=== PATIENT | female | born 1970 | race Two or more races ===

== ENCOUNTER → 2025-03-20 | Outpatient (CLI) | payer MEDICAID, SELFPAY ==
--- NOTE | 2025-03-20 14:30 | XR_ITS ---
Examination: Screening digital mammography, bilateral Computer aided detection 3-D breast Tomosynthesis, bilateral Date and time of exam: March 20, 2025 1415 hours Compared to mammograms dating to May 02, 2011 Indication: Screening Technique: Nonmagnified MLO, CC views of the breasts to been obtained, reconstructed from 3-D Tomosynthesis images. R2 computer aided detection program utilized for evaluation of suspicious masses and/or abnormal calcifications. 3-D Tomosynthesis images obtained. Findings: Scattered areas of fibroglandular density. Benign calcifications. No interval suspicious masses Impression: BI-RADS category II: Benign Findings. Recommend 1 year follow-up mammogram.
== END | disposition home or self-care (01) ==
LOC: CDIM 14:06
PROVIDERS: Referring Provider Registered Nurse Community Health; Visit Provider Registered Nurse Community Health
DX: Z12.31 Encounter for screening mammogram for malignant neoplasm of breast (principal); R92.323 Mammographic fibroglandular density, bilateral breasts; R92.1 Mammographic calcification found on diagnostic imaging of breast
CPT/HCPCS: 77063; 77067

== ENCOUNTER → 2025-04-05 | Outpatient (CLI) | payer MEDICAID, SELFPAY ==
--- NOTE | 2025-04-05 09:30 | XR_ITS ---
Examination: Pelvic ultrasound, transabdominal, complete Technique: Transabdominal ultrasound of the pelvis performed using grayscale imaging Date and time of exam: April 05, 2025 0931 hours INDICATIONS: Left pelvic pain beginning several months ago FINDINGS: Uterus 5.0 cm no uterine mass Ovaries obscured by bowel gas IMPRESSION: Limited study No uterine mass or intrauterine gestation
== END | disposition home or self-care (01) ==
LOC: CDIM 09:05
PROVIDERS: PCP Registered Nurse Community Health; Referring Provider Registered Nurse Community Health; Visit Provider Registered Nurse Community Health
DX: R10.2 Pelvic and perineal pain (principal)
CPT/HCPCS: 76856

== ENCOUNTER 2025-09-07 11:00 | Day surgery (SDC) | payer MEDICAID, SELFPAY ==
[2025-09-05 10:08] VITALS: BMI 39.8
[2025-09-05 12:17] LABS: Basophils # (Auto) 0.1 Thou/mm3 (0.0-0.2); Basophils % (Auto) 1 % (0-2.5); Eosinophils # (Auto) 0.2 Thou/mm3 (0.0-0.5); Eosinophils % (Auto) 3 % (0-10); Hematocrit 39.7 % (36.0-46.0); Hemoglobin 13.2 g/dL (12.0-16.0); Immature Granulocytes Auto 0.03 Thou/mm3 (0.00-0.00); Lymphocytes # (Auto) 2.1 Thou/mm3 (1.0-4.8); Lymphocytes % (Auto) 31 % (10-50); Mean Corpuscular HGB Conc 33.2 g/dl (31.0-37.0); Mean Corpuscular Hemoglobin 31.1 pg (25.0-35.0); Mean Corpuscular Volume 93 fL (80-100); Monocytes # (Auto) 0.5 Thou/mm3 (0.0-0.8); Monocytes % (Auto) 8 % (0-12); Neutrophils # (Auto) 3.8 Thou/mm3 (1.8-7.7); Neutrophils % (Auto) 56 % (37-80); Nucleated Red Blood Cell # 0.00 Thou/mm3 (0.00-0.00); Nucleated Red Blood Cell % 0 /100 WBC (0); Platelet Count 252 Thou/mm3 (140-440); RDW Standard Deviation 43.5 fL (36.4-46.3); Red Blood Count 4.25 Miln/mm3 (4.00-5.20); White Blood Count 6.7 Thou/mm3 (3.6-11.0)
[2025-09-05 12:29] LABS: Anion Gap 7 (7-16); BUN/Creatinine Ratio 20 Ratio (12-20); Blood Urea Nitrogen 14 mg/dL (9-23); Calcium 9.7 mg/dL (8.3-10.6); Carbon Dioxide 30.9 mMol/L (20.0-31.0); Chloride 103 mMol/L (98-107); Creatinine (Component) 0.7 mg/dL (0.6-1.3); Estimated Creatinine Clearance 101.2 mL/min (>60); Glucose 105 mg/dL (74-106); Osmolality,Calculated 281 (275-295); Potassium 4.2 mMol/L (3.4-5.1); Sodium 141 mMol/L (136-145); eGFR > 60 See Note
[2025-09-05 13:28] LABS: INR 1.0 (0.9-1.3); Partial Thromboplastin Time 25.1 Seconds (22.0-36.0); Prothrombin Time 10.2 Seconds (9.0-12.2)
[2025-09-07] VITALS (10 sets, daily range): BP systolic 118–132; BP diastolic 75–93; PULSE 61–73; RESP 13–18; TEMP 36.1–36.4; O2SAT 94–100; BMI 40.5
--- NOTE | 2025-09-07 13:23 | PD.SUROPNT ---
Date of Procedure 09/07/25 Pre Op Diagnosis Symptomatic varicose veins right lower extremity Post Op Diagnosis Same as pre-op diagnosis Procedure Varicose vein excision right lower extremity through # 77 incisions Findings All marked varicose veins were successively removed or disrupted Procedure Description With the patient standing in the preop area all varicose veins to be removed were carefully marked with a sharpie pen. The patient was then brought to the operating room and general anesthesia was established. A timeout was performed. The varicose veins were removed by making a small skin jorge in the marked area was #11 blade then bluntly enlarging the incisions with a mosquito clamp and sequentially excising or disrupting them. When hemostasis was obtained in all the incision sites that the limb was cleaned and then the incisions were reapproximated with Steri-Strips and a sterile wrap was placed followed by a Coban wrap for hemostasis. The patient woke well from anesthesia was moved to recovery in stable condition Anesthesia other (Laryngeal mask anesthesia) Pathology / specimen Other (Right lower extremity varicose veins) Estimated Blood Loss 100 Condition Stable Disposition PACU Surgeon David Albright MD Surgical Staff Operation Date: 09/07/25 13:00 Case Staff FUEL CELL ENGINEER: Fede Segura RNzipper machine operator: Dorina Montalvo
--- NOTE | 2025-09-07 13:42 | SUR.PHASEI ---
Addendum entered by Melisa Noriega RN 09/07/25 15:44: Change MAL Morrison to MAL Fraga Original Note: 1342: pt received from OR via [facility]. received report from MAL Morrison and ASIF Stokes. pt alert and oriented. no s/s of resp. distress or discomfort. c/o pain to right leg. dressing to right lower extremity clean, dry and intact. positive CMS: positive pulse, cap refill less than 3 seconds and able to wiggle toes.
[2025-09-07] MEDS: fentaNYL CIT INJ 50 mCg/ML AMP 2ML IVP ×3 (13:48→14:23)
[2025-09-07] MEDS: ACETAMINOPHEN IVPB 1,000 MG/100 ML VIAL 250 MG IV (13:51)
--- NOTE | 2025-09-07 14:10 | SUR.PHASEI ---
Addendum entered by eMlisa Noriega RN 09/07/25 14:20: 1210: Dr. Albright stated that pt needed to go to his office for dressing change on Thursday. Called the [facility] office to inform staff that pt needed dressing change. Stated that pt can go to office on Thursday on anytime from 8-12 and 1-5. Informed pt about the dressing to Dr. Albright'e office, verbalizes understanding. Original Note: 1210:
--- NOTE | 2025-09-07 14:39 | SUR.PHASEI ---
1439: pt tolerate jello and water with ice chips without any issues.
[2025-09-07] MEDS: HYDROcodone/APAP 5/325 TABLET 1 TAB PO (14:44)
[2025-09-07] MEDS: ONDANSETRON INJ 2 MG/ML INJ 2 ML 4 MG IVP (14:47)
--- NOTE | 2025-09-07 15:20 | SUR.PHASEII ---
1520: pt discharge to home via wheelchair. pt alert and oriented to name, place and time. no s/s of resp. distress or discomfort. dressing to right leg clean, dry and intact. no bleeding, swelling, or discharge noted. positive CMS: positive pulse, cap refill less than 3 seconds and able to wiggle right toes.
== END 2025-09-07 15:20 | disposition home or self-care (01) ==
PROVIDERS: PCP Registered Nurse Community Health; Referring Provider Surgery Vascular Surgery; Visit Provider Surgery Vascular Surgery
PROC: (CPT 37785; principal; 2025-09-07 13:00)
DX: I83.811 Varicose veins of right lower extremity with pain (principal)
CPT/HCPCS: 37766; 36415; 80048; 85025; 85610; 85730; A4649; J0131; J0690; J2250; J2405; J2704; J3010; A9270